=== PATIENT | female | born 1985 | race Caucasian/White ===

== ENCOUNTER 2018-10-12 13:06 | Outpatient (REF) | payer MEDICAID, SELFPAY ==
--- NOTE | 2018-10-12 11:00 | PAPFT_PTH ---
PATIENT: Ferdinand Mccarty LOC: [facility] U#:[id number] AGE/SX: 33/F ROOM: RE10/12/[address]: Elyssa Lombardo : 1985 BED: DIS: 10/12/2018 SPEC #: [id number] RECD: 10/15/18 12:54 STATUS: JOHNY RESadaf #: [id number] DORA: 10/12/18 11:[address]: Elyssa Lombardo DEPT: [facility] Cytology RECD BY: Laurie Montoya Tissues: 1 - CX/ENDOCX FOR PAP SMEARS Procedures: PAP THIN PREP/UVM Screening HPV DNA PROBE Comments: [id number] (CHLAMYDIA/GC)
[2018-10-16 14:02] LABS: Chlamydia Result Negative; GC Result Negative; Specimen Description SEE COMMENTS
== END 2018-10-12 13:26 ==
LOC: NCHCN 13:06
PROVIDERS: PCP Nurse Practitioner; Visit Provider Nurse Practitioner
DX: Z12.4 Encounter for screening for malignant neoplasm of cervix (principal); Z11.51 Encounter for screening for human papillomavirus (HPV); Z11.3 Encounter for screening for infections with a predominantly sexual mode of transmission
CPT/HCPCS: 87491; 87591; 88142; 87624

== ENCOUNTER 2019-11-04 19:22 | Emergency (ER) | payer MEDICAID, SELFPAY ==
[2019-11-04 19:26] VITALS: BP 113/79; PULSE 115; RESP 18; TEMP 36.8; O2SAT 98
--- NOTE | 2019-11-04 19:33 | W.ED.GENAD ---
Discharge Plan Disposition Patient Disposition: HOME Condition: Good Discharge Details Chief Complaint: GenMedical Clinical Impression: Influenza A Primary Care Provider: Elyssa Lombardo ED Provider: Bob Parnell Home Meds and New Rx's Prescriptions: No Action No Known Home Meds RF: 0 Discharge Instructions Instructions: Influenza (ED) Additional Instructions: Unfortunately you have the flu. Please drink plenty of fluids, get as much sleep as you can over the next week. I expect your symptoms to last another week to a week and a half. Please take 1000 mg of Tylenol and 800 mg of ibuprofen every 6 hours. This will definitely help with your symptoms. Please wash her hands, and wear a mask at all times if possible when in public. If you notice any worsening of your symptoms, or any new symptoms such as vomiting, diarrhea, fever, chills, shortness of breath, chest pain, numbness, weakness, or fainting , please return immediately to the emergency department for reevaluation. Please follow up with your primary care provider as soon as possible for reassessment and reevaluation. As always, it was a pleasure participating in your medical care today. Referrals: Elyssa Lombardo [Primary Care Provider] - Medical Decision Making This is a 34-year-old female with no significant past medical history who presents today for evaluation of symptoms of runny nose congestion mild cough fatigue malaise. Symptoms have been present for the last 48 hours. She denies any headache or neck pain. Physical exam is notably unremarkable, she does have minimal tachycardia but no signs of sepsis, afebrile here. No recent NSAIDs. At this time signs and symptoms are consistent with a viral illness. No clinical evidence of pneumonia. No hypoxemia. We will test for influenza, and reassess. Patient is influenza A positive. Secondary to the timing of her illness she is not a candidate for Tamiflu. She is notably stable at this time. No evidence of meningitis or other life-threatening component. Recommend fluids NSAIDs and rest. Discussed red flags which to return. I have extensively reviewed the treatment plan and discharge instructions with the patient. I have addressed all patient concerns at this time. The patient was made aware of what symptoms to monitor for that would warrant a return to the emergency department. Discussed the plan with the patient, they demonstrate verbal understanding and agreement with our assessment and plan at this time. HPI General Date/Time Provider Initiated Documentation: 11/04/19 19:24. HPI Narrative: This is a 34-year-old female with no significant past medical history who presents today with 48 hours of chills, myalgias, runny nose, cough congestion flulike symptoms. She has not gotten her flu shot this year. She is concerned that she may have the flu. She denies any nausea vomiting or diarrhea. She denies any chest tightness chest heaviness, or hemoptysis. She denies any numbness tingling or weakness. She denies any other complaints at this time. She denies any other sick contacts. Of note she did recently dressed a deer, however she got no ticks on her at that time. No other complaints at this time. No other modifying factors. Related Data Home Medications Medication Instructions Recorded Confirmed Unknown [No Known Home Meds] 11/04/19 11/04/19 Allergies Allergy/AdvReac Type Severity Reaction Status Date / Time No Known Allergies Allergy Unverified 11/04/19 19:33 General Stated Complaint: GenMedical TIM: 3 Review of Systems All systems reviewed & are unremarkable except as noted in HPI and below PFSH Social History Smoking/Tobacco Use Status: Never Drug use: Daily Substance use type: marijuana Do you feel safe at home: Yes Do you feel safe in your relationship?: Yes Exam Narrative Exam Narrative: 1.Const: Well-nourished, Well-developed, appearing stated age 2.Eyes: PERRL, no conjunctival injection, and symmetrical lids. 3.ENT: Atraumatic external nose and ears. Moist MM. Neck: Symmetric, trachea midline, No thyromegaly. Patient demonstrates good movement of cervical neck. There is no nuchal rigidity, no nuchal tenderness. Patient is able to flex the neck without any difficulty or significant pain. Negative Kernig's and Brudzinski sign. 4.CVS: +S1/S2, No murmurs or gallops. Peripheral pulses 2+ and equal in all extremities. Brisk capillary refill in all extremities. 5.RESP: Unlabored respiratory effort. Clear to auscultation bilaterally. No wheezes rales or rhonchi 6.GI: Soft, Nontender/Nondistended, No hepatosplenomegaly. No guarding or rebound. 7.MSK: Normocephalic/Atraumatic, Extremities w/o deformity or ttp No cyanosis or clubbing, Normal movement of all extremities 8.Skin: Warm, Dry. No rashes or lesions. 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 Sensation grossly intact, no focal neurologic deficits. 10.Psych: (AAO) x3. Appropriate mood and affect Course Vital Signs Vital signs: Vital Signs Temperature 36.8 C 11/04/19 19:26 Pulse 115 H 11/04/19 19:26 Respiratory Rate 18 11/04/19 19:26 Blood Pressure 113/79 11/04/19 19:26 Pulse Oximetry 98 11/04/19 19:26 Temperature 36.8 C 11/04/19 19:26 Temperature Source Tympanic 11/04/19 19:26 Pulse 115 H 11/04/19 19:26 Respiratory Rate 18 11/04/19 19:26 Blood Pressure 113/79 11/04/19 19:26 Blood Pressure Position Sitting 11/04/19 19:26 Pulse Oximetry 98 11/04/19 19:26 Oxygen Delivery Method Room Air 11/04/19 19:26 Oxygen Flow Rate 0 11/04/19 19:26 Pain Level 6 11/04/19 19:26
[2019-11-04 20:11] VITALS: RESP 16
[2019-11-04 20:27] VITALS: BP 113/79; PULSE 115; RESP 16; TEMP 36.8; O2SAT 98
== END 2019-11-04 20:30 | disposition home or self-care (01) ==
PROVIDERS: Emergency Provider Student in an Organized Health Care Education/Training Program; PCP Nurse Practitioner
DX: R05 Cough (principal); R09.81 Nasal congestion; J10.1 Influenza due to other identified influenza virus with other respiratory manifestations
CPT/HCPCS: 87449; 99282

== ENCOUNTER 2020-09-24 12:04 | Outpatient (REF) | payer MEDICAID, SELFPAY ==
[2020-09-26 23:14] LABS: Chlamydia amplified RNA Negative (Negative); N gonorrhoeae amplified RNA Negative (Negative); Source VAGINAL
== END 2020-09-24 12:24 ==
LOC: NCHCN 12:04
PROVIDERS: PCP Nurse Practitioner; Visit Provider Nurse Practitioner Family
DX: N76.0 Acute vaginitis (principal)
CPT/HCPCS: 87491; 87591

== ENCOUNTER 2021-03-25 13:31 | Outpatient (REF) | payer MEDICAID, SELFPAY ==
[2021-03-25 21:10] LABS: BUN 9 mg/dL (7-18); CREATININE 0.7 mg/dL (0.55-1.02); Calcium 9.2 mg/dL (8.5-10.1); Chloride 104 mmol/L (98-107); Glucose 81 mg/dL (74-106); Potassium 4.5 mmol/L (3.5-5.1); Sodium 141 mmol/L (136-145); TSH (W/Ref FT4) 2.25 uIU/mL (0.36-3.74)
[2021-03-29 00:11] LABS: Anaplasma phagocytophilum Negative (Negative); B. miyamotoi PCR Negative (Negative); Babesia divergens/MO-1 Negative (Negative); Babesia duncani Negative (Negative); Babesia microti Negative (Negative); Ehrlichia chaffeensis Negative (Negative); Ehrlichia ewingii/canis Negative (Negative); Ehrlichia muris eauclairensis Negative (Negative)
[2021-03-29 11:59] LABS: Lyme Ab w Rflx to Lyme Confirm Negative (Negative)
[2021-03-29 13:12] LABS: IgA 250 mg/dL (85-499); Interpretation (See Note); Tissue Transglutaminase IgA <1.2 U/mL (<4.0)
== END 2021-03-25 13:32 | disposition home or self-care (01) ==
LOC: NCHCN 13:31
PROVIDERS: PCP Nurse Practitioner; Visit Provider Nurse Practitioner Family
DX: N89.8 Other specified noninflammatory disorders of vagina (principal); M25.59 Pain in other specified joint; R68.89 Other general symptoms and signs
CPT/HCPCS: 80048; 82784; 83516; 87798; 84443; 86618; 87480; 87510; 87660

== ENCOUNTER 2021-04-29 14:24 | Emergency (ER) | payer MEDICAID, SELFPAY ==
[2021-04-29 14:27] VITALS: BP 115/64; PULSE 89; RESP 18; TEMP 36.6; O2SAT 98
--- NOTE | 2021-04-29 14:30 | DI.RAD_ITS ---
Exam(s) XR FOOT LT COMPLETE EXAM: XR FOOT LT COMPLETE CLINICAL HISTORY: pain post trauma. TECHNIQUE: 2D digital imaging was performed. COMPARISON: No exams were available for comparison FINDINGS: There is no evidence of fracture or diastasis of the Lisfranc joint. Tiny inferior calcaneal spur is noted. IMPRESSION: DATA REPOSITORY: RADIATION DOSE DELIVERED:
--- NOTE | 2021-04-29 14:50 | W.ED.GENAD ---
Discharge Plan Disposition Patient Disposition: HOME Condition: Good Discharge Details Clinical Impression: Muscle strain of foot Primary Care Provider: Elyssa Lombardo ED Provider: Laurie Jamil Home Meds and New Rx's Prescriptions: No Action cetirizine [Zyrtec] 10 MG tablet 1 tab PO PRN PRNRF: 0 No Known Home Meds RF: 0 Discharge Instructions Additional Instructions: Repeat x-ray in 1 week if persistent pain Ibuprofen or Tylenol for pain control You may use the shoe for comfort Please return earlier should you have new or worsening Discharge Data Discharge Date/Time-TO BE ENTERED AT DEPARTURE: 04/29/21 15:39 Medical Decision Making No fracture noted on x-ray per radiology interpretation in my review Given a cast shoe for comfort Ibuprofen and Tylenol for pain control Repeat x-ray in 1 week with persistent pain recommended Differential Diagnosis Differential Diagnosis: Fracture, strain, contusion, abrasion Medical Records Medical records reviewed: Yes I reviewed the patient's medical records. HPI General Mode of arrival: ambulatory. Date/Time Provider Initiated Documentation: 04/29/21 14:28. Limitations to Documentation: no limitations. Information obtained by: patient. HPI Narrative: This 36-year-old female patient presents with report of left foot injury. Patient reportedly stepped in a river and in between some rocks when she felt a tenderness and crunching sound from her right side. She states that she has been hobbling around since that time. She denies any additional complaints at this time. Denies any chance of . Related Data Home Medications Medication Instructions Recorded Confirmed cetirizine [Zyrtec] 1 tab PO PRN PRN 01/14/18 04/29/21 Unknown [No Known Home Meds] 11/04/19 11/04/19 Allergies Allergy/AdvReac Type Severity Reaction Status Date / Time No Known Allergies Allergy Unverified 04/29/21 14:34 General Stated Complaint: Orthopedic TIM: 4 Review of Systems Narrative: Review of systems obtained x7 aside from where indicated in HPI COUNT INCLUDES [facility] Social History (System 04/08/21 @ 12:42 by Jessica Coley) Smoking/Tobacco Use Status: Never Smoking risk assessment performed?: Yes Drug use: Daily Substance use type: marijuana Do you feel safe at home: Yes Do you feel safe in your relationship?: Yes Exam Extrem Other: Left foot tenderness with bruising noted to second and third metatarsal, no ankle tenderness Neurovascularly intact Course Vital Signs Vital signs: Vital Signs Temperature 36.6 C 04/29/21 14:27 Pulse 89 04/29/21 14:27 Respiratory Rate 18 04/29/21 14:27 Blood Pressure 115/64 04/29/21 14:27 Pulse Oximetry 98 04/29/21 14:27 Temperature 36.6 C 04/29/21 14:27 Temperature Source Oral 04/29/21 14:27 Pulse 89 04/29/21 14:27 Respiratory Rate 18 04/29/21 14:27 Respiratory Effort Non-Labored 04/29/21 14:33 Blood Pressure 115/64 04/29/21 14:27 Blood Pressure Position Sitting 04/29/21 14:27 Pulse Oximetry 98 04/29/21 14:27 Oxygen Delivery Method Room Air 04/29/21 14:27 Oxygen Flow Rate 0 04/29/21 14:27 Pain Level 5 04/29/21 14:27
== END 2021-04-29 15:39 | disposition home or self-care (01) ==
PROVIDERS: Emergency Provider Physician Assistant; PCP Nurse Practitioner
DX: S96.812A Strain of other specified muscles and tendons at ankle and foot level, left foot, initial encounter (principal); W18.41XA Slipping, tripping and stumbling without falling due to stepping on object, initial encounter
CPT/HCPCS: 99283; 73630; 99282

== ENCOUNTER 2021-05-07 03:24 | Outpatient (CLI) | payer MEDICAID, SELFPAY ==
--- NOTE | 2021-05-07 13:59 | DI.MAMMO_ITS ---
Exam(s) US BREAST LT COMPLETE MG MAMMO DIAGNOSTIC BI EXAM: US BREAST LT COMPLETE CLINICAL HISTORY: ABNORMAL BREAST FINDINGS,N64.59,LT NODULE,? LYMPH NODE. TECHNIQUE: Craniocaudal and mediolateral oblique Full Field Digital Mammography views with Computer Aided Diagnosis followed by Tomosynthesis and complete left breast ultrasound. COMPARISON: No exams were available for comparison FINDINGS: Mammography/Tomosynthesis: Masses/Architectural Distortion: None seen. Microcalcifictions: No suspicious pleomorphic-type are seen. Skin Thickening/Nipple Retraction: None. Left breast US: Echotexture: Normal appearance of the glandular tissue. Shadowing: No suspicious foci. Cyst: None. Solid lesions: None seen. Ductal dilation: None. Axillary lymph nodes: Normal. IMPRESSION: 1. No evidence of malignancy is noted. 2. Unless there is more urgent need, follow-up screening mammography is recommended, as per [employer] guidelines. 3. The findings were discussed with the patient on the date of the examination. BI-RADS Category 1 - Negative Breast Density - Category C - Heterogeneously dense Breast density category C or D implies that the patient has dense breast tissue. Dense breast tissue is very common and is not abnormal but dense breast tissue can make it harder to find cancer on a ma mmogram. Also, dense breast tissue may increase their breast cancer risk. This information about the result of the mammogram report was provided to the patient to raise their awareness. Use this report when you speak with the patient about their risks for breast cancer, which includes their family hist ory. At that time, you may recommend for more screening tests (Ultrasound or MRI) as they might be us eful based on their risk. A negative radiographic report should not delay biopsy if a dominant or clinically suspicious mass is present. Up to ten percent of cancers are not identified on mammography. A negative report may reinforce clinical impression. Adenosis and dense breasts may obscure an underlying neoplasm. False positive reports average 6 to 10%. Patient will receive a letter notifying them of these results.
== END 2021-05-07 03:44 ==
PROVIDERS: PCP Nurse Practitioner; Visit Provider Nurse Practitioner Family
DX: R92.2 Inconclusive mammogram (principal); N63.20 Unspecified lump in the left breast, unspecified quadrant; N64.59 Other signs and symptoms in breast
CPT/HCPCS: 76642; 77062; 77066; G0279